=== PATIENT | female | born 1965 | race American Indian/Alaskan Native ===

== ENCOUNTER 2016-08-03 07:57 | Outpatient (CLI) | payer OTHER ==
[2016-08-03] MEDS ORDERED: XYLOCAINE TOPICAL 4% TP ONE ×2 (08:03→08:48)
[2016-08-03] MEDS ORDERED: SILVER NITRATE TP ONE (09:31)
[2016-08-04] MEDS ORDERED: SILVER NITRATE TP ONE (13:47)
== END 2016-08-03 07:58 | disposition home or self-care (01) ==
LOC: WOUND 07:57
PROVIDERS: ATTEND Internal Medicine
DX: T81.89XA Other complications of procedures, not elsewhere classified, initial encounter (principal); S41.001D Unspecified open wound of right shoulder, subsequent encounter; I10 Essential (primary) hypertension; K21.0 Gastro-esophageal reflux disease with esophagitis; J30.1 Allergic rhinitis due to pollen; L72.3 Sebaceous cyst; M75.81 Other shoulder lesions, right shoulder; Y83.8 Other surgical procedures as the cause of abnormal reaction of the patient, or of later complication, without mention of misadventure at the time of the procedure
CPT/HCPCS: 11042; 87075; 87116; G0463

== ENCOUNTER 2016-08-10 07:57 | Outpatient (CLI) | payer OTHER ==
[2016-08-10] MEDS ORDERED: XYLOCAINE TOPICAL 4% TP ONE ×2 (08:01→09:00)
== END 2016-08-10 07:58 | disposition home or self-care (01) ==
LOC: WOUND 07:57
PROVIDERS: ATTEND Surgery
DX: T81.89XD Other complications of procedures, not elsewhere classified, subsequent encounter (principal); M75.81 Other shoulder lesions, right shoulder; K21.0 Gastro-esophageal reflux disease with esophagitis; J30.1 Allergic rhinitis due to pollen; L72.3 Sebaceous cyst; I10 Essential (primary) hypertension; E16.2 Hypoglycemia, unspecified; Y83.8 Other surgical procedures as the cause of abnormal reaction of the patient, or of later complication, without mention of misadventure at the time of the procedure

== ENCOUNTER 2016-08-24 08:04 | Outpatient (CLI) | payer OTHER ==
[2016-08-24] MEDS ORDERED: XYLOCAINE TOPICAL 4% TP ONE (08:14)
== END 2016-08-24 08:05 | disposition home or self-care (01) ==
LOC: WOUND 08:04
PROVIDERS: ATTEND Internal Medicine
DX: T81.89XD Other complications of procedures, not elsewhere classified, subsequent encounter (principal); K21.0 Gastro-esophageal reflux disease with esophagitis; I10 Essential (primary) hypertension; L72.3 Sebaceous cyst; M75.81 Other shoulder lesions, right shoulder; E16.2 Hypoglycemia, unspecified; Y83.8 Other surgical procedures as the cause of abnormal reaction of the patient, or of later complication, without mention of misadventure at the time of the procedure

== ENCOUNTER 2016-08-31 08:00 | Outpatient (CLI) | payer OTHER ==
[2016-08-31] MEDS ORDERED: XYLOCAINE TOPICAL 4% TP ONE ×2 (08:13→09:00)
== END 2016-08-31 08:01 | disposition home or self-care (01) ==
LOC: WOUND 08:00
PROVIDERS: ATTEND Surgery
DX: T81.89XD Other complications of procedures, not elsewhere classified, subsequent encounter (principal); I10 Essential (primary) hypertension; K21.0 Gastro-esophageal reflux disease with esophagitis; J30.1 Allergic rhinitis due to pollen; L72.3 Sebaceous cyst; M75.81 Other shoulder lesions, right shoulder; E16.2 Hypoglycemia, unspecified; Y83.8 Other surgical procedures as the cause of abnormal reaction of the patient, or of later complication, without mention of misadventure at the time of the procedure
CPT/HCPCS: 99213; G0463